=== PATIENT | male | born 1995 | race Two or more races ===

== ENCOUNTER 2016-09-19 17:30 | Emergency (ER) | payer MEDICAID ==
[2016-09-19 17:43] VITALS: TEMP 98; BMI 37.0
[2016-09-19] MEDS ORDERED: ONDANSETRON HCL 4 MG/2 ML VIAL IV ONE (17:56)
[2016-09-19] MEDS ORDERED: HYDROmorphone 1 MG INJECTION IV ONE (17:56)
[2016-09-19] MEDS ORDERED: HYDROmorphone 1 MG INJECTION ONE (17:58)
[2016-09-19] MEDS ORDERED: ONDANSETRON HCL 4 MG/2 ML VIAL ONE (17:58)
[2016-09-19] MEDS ORDERED: HYDROmorphone 1 MG INJECTION IV SCH (18:00)
--- NOTE | 2016-09-19 18:02 | EDPRACDOC ---
<Dayanna Fierro Matilde - Last Filed: 09/19/16 19:03> - General Information Mode of Arrival: Car - History of Present Illness Onset: [employer] HPI: PT STATES PLAYING FOOTBALL TWISTED LEFT NKLE AFTER BEING TCKLED FROM BEHIND. PT C/O LEFT ANKLE PAIN AND SWELLING AND CANT BEAR WEIGHT. THERE APPERS TO BE OBVIOUS DEFORMITY OF THE ANKLE. PT CAN WIGGLE TOES AND ANTERIOR PEDAL PULSE IS PRESENT. Ankle Problem Location: Reports: Left, Medial, Lateral Mechanism: Reports: Inversion Circumstances: Reports: None Tetanus Up To Date?: No Able to Bear Weight: No Pain Severity: Reports: Moderate Associated Signs & Symptoms: Reports: Swelling, Other (OBVIOUS DEFORMITY) <Mercy Mcnally - Last Filed: 09/20/16 20:53> - General Information Chief Complaint: Ankle Pain Stated Complaint: L ANKLE PAIN Time Seen by Provider: 09/19/16 17:56 Home Medications: Home Medications Oxycodone Immediate Release [Oxycodone Immediate Release (OxyIR)] 5 mg PO Q4H PRN #20 tab 09/19/16 Allergies/Adverse Reactions: Allergies Allergy/AdvReac Type Severity Reaction Status Date / Time No Known Allergies Allergy Verified 09/19/16 17:48 ED Past Medical History - History Reviewed Yes Nurses notes reviewed and agree except as marked Travel Outside of [place] in the Last 3 Months?: No - Patient Medical History Respiratory History: Reports: Asthma Psychological History: Denies: Depression - Social Medical History Smoking Status: Heavy tobacco smoker (5 or more cigarettes/day or daily pipe/ cigar) Social History: Reports: Marijuana Use (OCCASIONAL USE) ETOH: None Lives With: Other Lives In: Home <Mercy Mcnally - Last Filed: 09/20/16 20:53> EDM Review of Systems - Review of Systems ROS Negative Except as Marked: Yes All systems reviewed and were negative except as marked Constitutional: No Symptoms Reported. negative: Fever, Chills, Weakness, Fatigue, Loss of Appetite Eyes: No Symptoms Reported. negative: Redness, Blurred Vision, Double Vision, Discharge, Pain, Light Sensitive, Photophobia Ears: No Symptoms Reported. negative: Pain, Hearing Loss, Drainage, Ear Pulling Throat: No Symptoms Reported. negative: Pain, Swelling Nose: No Symptoms Reported. negative: Congestion, Bleeding, Discharge, Injection, Swelling, Deformity, Ecchymosis, Tender, Abrasion, Laceration Mouth: No Symptoms Reported. negative: Pain, Drooling Respiratory: No Symptoms Reported. negative: Cough, Brassy Cough, Barky Cough, Shortness of Breath, Wheezing, Hemoptysis Cardiovascular: No Symptoms Reported. negative: Chest Pain, Palpitations, Syncope, Edema, Orthopnea, PND, Skin Mottling, Cyanosis Gastrointestinal: No Symptoms Reported. negative: Pain, Constipation, Nausea, Vomiting, Diarrhea, Melena, Formula Intolerance Genitourinary: No Symptoms Reported. negative: Dysuria, Hematuria, Frequency, Discharge, Bleeding, Testicular Pain, Neurological: No Symptoms Reported. negative: Headache, Dizziness, Seizure, Numbness, Weakness, Speech Difficulty, Gait Difficulty Musculoskeletal: Ankle (LEFT). negative: Arm, Back, Chestwall, Elbow, Forearm, Femur, Foot, Hand, Hip, Knee, Leg, Neck, Pelvis, Ribs, Shoulder, Wrist Integumentary: No Symptoms Reported. negative: Itching, Rash, Bruising, Wound Allergic/Immunologic: No Symptoms Reported. negative: Hives, Itching Hematologic: No Symptoms Reported. negative: Lymphadenopathy, Easy Bruising, Easy Bleeding Endocrine: No Symptoms Reported. negative: Weight Gain, Weight Loss Psychiatric: No Symptoms Reported. negative: Anxiety, Depression, Hallucinations, Insomnia, Suicidal <Mercy Mcnally - Last Filed: 09/20/16 20:53> - Physical Exam Last recorded Vital Signs: Last Vital Signs Temp 98.0 F 09/19/16 17:41 Pulse 101 09/19/16 17:41 Resp 18 09/19/16 17:41 BP 129/78 09/19/16 17:41 Pulse Ox 98 09/19/16 17:41 Oxygen Pulse Oxygen Saturation 98 O2 Device Room Air Oxygen Flow Rate Fraction of Inspired Oxygen ( FIO2) <Dayanna Fierro - Last Filed: 09/19/16 19:03> - Physical Exam Constitutional: Alert (Awake), No apparent distress Oriented to: Time, Person, Place Last recorded Vital Signs: Last Vital Signs Temp 98.0 F 09/19/16 17:41 Pulse 101 09/19/16 17:41 Resp 18 09/19/16 17:41 BP 129/78 09/19/16 17:41 Pulse Ox 98 09/19/16 17:41 Oxygen Pulse Oxygen Saturation 98 O2 Device Room Air Oxygen Flow Rate Fraction of Inspired Oxygen ( FIO2) - HEENT Head: Normal ( normocephalic) Eye Exam: Normal (PERRL, EOMI, Sclera white) Oropharynx: Normal (Pharynx:Moist without exudate,Gums-no swelling) Tympanic Membrane: Normal ENT EAC: Normal TMJ: Normal Nose: No Symptoms Reported (septum midline) Neck: Normal (FROM, trachea at midline) - Respiratory/Cardiovascular Respiratory: Normal - CTA (BBS clear to auscultation without adventitious sounds ) Cardiovascular: Normal (RRR without murmur, gallop or rub) - GI Auscultation: Normal (NABS) Palpation: Normal (Soft,No rebound or guarding, non distended) Tenderness: Non tender Keane's Sign: Negative - Musculoskeletal Back: Normal (Non-Tender) Extremities: Normal (Normal tone, Pulses 2+ No cyanosis or edema, FROM) - Integumentary Skin: Normal, Warm, Dry Lymphatics: Normal (no adenopathy) - Neurologic Memory Impaired: Normal Motor Function: Normal (Normal tone, Pulses 2+ No cyanosis or edema, FROM) Cranial Nerve: Normal (CN II-X11 intact sensation, strength 5/5) Cerebellar: Normal Mood Description: Normal Perception: Normal <Mercy Mcnally - Last Filed: 09/20/16 20:53> ED Ankle Problem Phys Exam - Musculoskeletal Ankle: Swelling (LEFT MEDIL AND LATERAL SWELLING), Deformity, Limited ROM, Moderate Tenderness Achilles Tendon: Normal Knee: Normal Lower Leg: Normal Foot: Normal Distal Function/Circulation: Normal - Integumentary Skin: Normal Lymphatics: Normal <Mercy Mcnally - Last Filed: 09/20/16 20:53> ED Procedures - Splinting ANKLE Location: LT Splint: POSTERIOR SHORT LEG AND STIRRUP Pre-Proc Neuro Vasc Exam: normal Post-Proc Neuro Vasc Exam: normal Other Devices: Crutches - Additional Procedures Progress Note: HEMATOMA BLOCK OF LEFT ANKLE: AREA CLEANED AND DRAPED IN STERILE FASHION WITH BETADINE, BUPIVACAINE 0.5%(5CC) AND LIDO 1% WITH EPI (5CC) USED TO INJECTED THE TRAUMATIC HEMATOMA, BLEEDING CONTROLLED WITH PRESSURE, PT TOLERATED WELL AND HAD MILD TO MODERATE RELIEF SEVERAL MINUTES AFTER BLOCK PLACED. <Mercy Mcnally - Last Filed: 09/20/16 20:53> - Differential Diagnosis Contusion, Fibula Fracture, Fracture, Sprain, Tibia Fracture - Diagnostic Imaging ANKLE/TIB/FIB Image interpreted by: Radiologist Exam Information Accession Number: [id number] Modality: CR Body Part: KIMBERLY Description: DG ANKLE COMPLETE 3+V*L* Performed Date: 09/19/2016 18:08:23 Patient History: [employer]Y [employer]ORTS Comments: PT CC: PT WAS PLAYING FOOTBALL TODAY, WHEN HE WAS TACKLED ENDING IN A TWIST INJ TO THE LT ANKLE, PAIN/SWELLING, LIMITED RANGE OF MOTION. Final Report CLINICAL DATA: Playing football today and injured ankle and left leg. EXAM: LEFT ANKLE COMPLETE - 3+ VIEW; LEFT TIBIA AND FIBULA - 2 VIEW COMPARISON: None. FINDINGS: Left tibia/ fibula: Oblique coursing nondisplaced distal fibular fractures noted. The knee joint is maintained. No tibia fracture. Left ankle: Nondisplaced oblique coursing distal fibular fracture at and above the level of the ankle mortise. The medial malleolus is intact. Possible subtle posterior malleolar fracture. The ankle mortise is maintained. The mid and hindfoot bony structures are intact. IMPRESSION: Nondisplaced distal fibular fracture. Possible subtle nondisplaced posterior malleolar fracture of the tibia. <Mercy Mcnally - Last Filed: 09/20/16 20:53> <Dayanna Fierro - Last Filed: 09/19/16 19:03> Decision Time to Discharge: 18:56 - Departure Disposition: Home Education/Counseling Given To: Patient Education/Counseling Given Regarding: Diagnosis, Treatment, Prognosis, Follow Up <Mercy Mcnally - Last Filed: 09/20/16 20:53> - Departure Condition: Stable Final Diagnosis: Ankle Fracture Bimalleolar fracture of left ankle Qualifiers: Encounter type: initial encounter Fracture type: closed Qualified Code(s): S82.842A - Displaced bimalleolar fracture of left lower leg, initial encounter for closed fracture Instructions: Ankle Fracture (ED), RICE: Routine Care for Injuries Referrals: None,No Provider [Primary Care Provider] - One Week Patrice Powell DO [Staff Physician] - One Week Prescriptions: Oxycodone Immediate Release [Oxycodone Immediate Release (OxyIR)] 5 mg PO Q4H PRN #20 tab PRN Reason: Pain Additional Instructions: REST ICE COMPRESS AND ELEVATE YOUR LEFT FOOT TO HELP WITH SWELLING. PLEASE FOLLOW UP WITH ORTHOPEDIST WE DISCUSSED.
[2016-09-19] MEDS ORDERED: BUPIVACAINE 0.5% 30 ML VIAL INF ONE (18:10)
[2016-09-19] MEDS ORDERED: BUPIVACAINE 0.5% 30 ML VIAL ONE (18:12)
--- NOTE | 2016-09-19 18:45 | DIRPT ---
CLINICAL DATA: Playing football today and injured ankle and left leg. EXAM: LEFT ANKLE COMPLETE - 3+ VIEW; LEFT TIBIA AND FIBULA - 2 VIEW COMPARISON: None. FINDINGS: Left tibia/ fibula: Oblique coursing nondisplaced distal fibular fractures noted. The knee joint is maintained. No tibia fracture. Left ankle: Nondisplaced oblique coursing distal fibular fracture at and above the level of the ankle mortise. The medial malleolus is intact. Possible subtle posterior malleolar fracture. The ankle mortise is maintained. The mid and hindfoot bony structures are intact. IMPRESSION: Nondisplaced distal fibular fracture. Possible subtle nondisplaced posterior malleolar fracture of the tibia. Electronically Signed By: Augusto Bahena M.D. On: 09/19/2016 18:43
[2016-09-19 19:48] VITALS: BP 126/74; PULSE 100
== END 2016-09-19 19:42 | disposition home or self-care (01) ==
LOC: ED 17:30
DX: S82.842A Displaced bimalleolar fracture of left lower leg, initial encounter for closed fracture (principal); X58.XXXA Exposure to other specified factors, initial encounter; Y93.61 Activity, american tackle football
CPT/HCPCS: 29515; 73590; 73610; 96372; 96374; 96375; 96376; 99283; J1170; J2405; J3490

== ENCOUNTER 2016-09-20 20:25 | Emergency (ER) | payer MEDICAID ==
[2016-09-20 20:26] VITALS: BMI 37.0
[2016-09-20 21:12] VITALS: BP 111/75; PULSE 84; TEMP 98.8
[2016-09-20] MEDS ORDERED: OXYCODONE HCL 5 MG TABLET PO ONE (21:36)
--- NOTE | 2016-09-20 21:38 | EDPRACDOC ---
- General Information Chief Complaint: Ankle Pain Stated Complaint: LT ANKLE FX HERE FOR CHANGE IN PAIN MED Time Seen by Provider: 09/20/16 21:32 Information Source: Patient Mode of Arrival: Car Home Medications: Home Medications Oxycodone Immediate Release [Oxycodone Immediate Release (OxyIR)] 5 mg PO Q4H PRN #20 tab 09/19/16 Oxycodone HCl/Acetaminophen [Percocet 5-325 mg Tablet] 1 tab PO Q4-6H PRN #10 tab 09/20/16 Allergies/Adverse Reactions: Allergies Allergy/AdvReac Type Severity Reaction Status Date / Time No Known Allergies Allergy Verified 09/20/16 21:12 - History of Present Illness Onset: yesterday HPI: PT SEEN HERE YESTERDAY FOR BIMALLEOLAR FRACTURE ON LEFT STATES HE WAS GIVEN OXYCODONE 5MG EVERY 4 HRS AND STATES THE OLEARY MEDICATION ISNT REALLY HELPING. Ankle Problem Location: Reports: Left, Lateral Mechanism: Reports: Other (PLAYING FOOTBALL TACKLED FROM BEHIND) Circumstances: Reports: Sporting Able to Bear Weight: No Pain Severity: Reports: Moderate Associated Signs & Symptoms: Reports: Other (IN SPLINT) ED Past Medical History - History Reviewed Yes Nurses notes reviewed and agree except as marked Travel Outside of [place] in the Last 3 Months?: No - Patient Medical History Respiratory History: Reports: Asthma Psychological History: Denies: Depression - Social Medical History Smoking Status: Heavy tobacco smoker (5 or more cigarettes/day or daily pipe/ cigar) Social History: Reports: Marijuana Use (OCCASIONAL USE) ETOH: None Substance Abuse: None Lives With: Significant Other Lives In: Home EDM Review of Systems - Review of Systems ROS Negative Except as Marked: Yes All systems reviewed and were negative except as marked Constitutional: No Symptoms Reported. negative: Fever, Chills, Weakness, Fatigue, Loss of Appetite Eyes: No Symptoms Reported. negative: Redness, Blurred Vision, Double Vision, Discharge, Pain, Light Sensitive, Photophobia Ears: No Symptoms Reported. negative: Pain, Hearing Loss, Drainage, Ear Pulling Throat: No Symptoms Reported. negative: Pain, Swelling Nose: No Symptoms Reported. negative: Congestion, Bleeding, Discharge, Injection, Swelling, Deformity, Ecchymosis, Tender, Abrasion, Laceration Mouth: No Symptoms Reported. negative: Pain, Drooling Respiratory: No Symptoms Reported. negative: Cough, Brassy Cough, Barky Cough, Shortness of Breath, Wheezing, Hemoptysis Cardiovascular: No Symptoms Reported. negative: Chest Pain, Palpitations, Syncope, Edema, Orthopnea, PND, Skin Mottling, Cyanosis Gastrointestinal: No Symptoms Reported. negative: Pain, Constipation, Nausea, Vomiting, Diarrhea, Melena, Formula Intolerance Genitourinary: No Symptoms Reported. negative: Dysuria, Hematuria, Frequency, Discharge, Bleeding, Testicular Pain, Neurological: No Symptoms Reported. negative: Headache, Dizziness, Seizure, Numbness, Weakness, Speech Difficulty, Gait Difficulty Musculoskeletal: Ankle (LEFT). negative: Arm, Back, Chestwall, Elbow, Forearm, Femur, Foot, Hand, Hip, Knee, Leg, Neck, Pelvis, Ribs, Shoulder, Wrist Integumentary: No Symptoms Reported. negative: Itching, Rash, Bruising, Wound Allergic/Immunologic: No Symptoms Reported. negative: Hives, Itching Hematologic: No Symptoms Reported. negative: Lymphadenopathy, Easy Bruising, Easy Bleeding Endocrine: No Symptoms Reported. negative: Weight Gain, Weight Loss Psychiatric: No Symptoms Reported. negative: Anxiety, Depression, Hallucinations, Insomnia, Suicidal - Physical Exam Constitutional: Alert (Awake), No apparent distress Oriented to: Time, Person, Place Last recorded Vital Signs: Last Vital Signs Temp 98.8 F 09/20/16 21:09 Pulse 84 09/20/16 21:09 Resp 18 09/20/16 21:09 BP 111/75 09/20/16 21:09 Pulse Ox 95 09/20/16 21:09 Oxygen Pulse Oxygen Saturation 95 O2 Device Room Air Oxygen Flow Rate Fraction of Inspired Oxygen ( FIO2) - HEENT Head: Normal ( normocephalic) Eye Exam: Normal (PERRL, EOMI, Sclera white) Oropharynx: Normal (Pharynx:Moist without exudate,Gums-no swelling) Tympanic Membrane: Normal ENT EAC: Normal TMJ: Normal Nose: No Symptoms Reported (septum midline) Neck: Normal (FROM, trachea at midline) - Respiratory/Cardiovascular Respiratory: Normal - CTA (BBS clear to auscultation without adventitious sounds ) Cardiovascular: Normal (RRR without murmur, gallop or rub) - GI Auscultation: Normal (NABS) Palpation: Normal (Soft,No rebound or guarding, non distended) Tenderness: Non tender Keane's Sign: Negative - Musculoskeletal Back: Normal (Non-Tender) Extremities: Normal (Normal tone, Pulses 2+ No cyanosis or edema, FROM) - Integumentary Skin: Normal, Warm, Dry Lymphatics: Normal (no adenopathy) - Neurologic Memory Impaired: Normal Motor Function: Normal (Normal tone, Pulses 2+ No cyanosis or edema, FROM) Cranial Nerve: Normal (CN II-X11 intact sensation, strength 5/5) Cerebellar: Normal Mood Description: Normal Perception: Normal ED Ankle Problem Phys Exam - Musculoskeletal Ankle: Other (IN SPLINT) Achilles Tendon: Normal Knee: Normal Lower Leg: Normal Distal Function/Circulation: Normal, Capillary Refill (<2 SEC) - Integumentary Skin: Normal Lymphatics: Normal - Differential Diagnosis Other (ANKLE FRACTURE PAIN CONTROL/MEDICATION REFILL) Decision Time to Discharge: 21:39 - Departure Disposition: Home Condition: Stable Final Diagnosis: Ankle Fracture Instructions: RICE: Routine Care for Injuries, Ankle Fracture (ED), Narcotic Pain Management (ED) Education/Counseling Given To: Patient Education/Counseling Given Regarding: Diagnosis, Treatment, Prognosis, Follow Up Referrals: None,No Provider [Primary Care Provider] - One Week Patrice Powell DO [Staff Physician] - One Week Prescriptions: Oxycodone HCl/Acetaminophen [Percocet 5-325 mg Tablet] 1 tab PO Q4-6H PRN #10 tab PRN Reason: Pain Additional Instructions: TAKE 1 OXYCODONE AND 1 PERCOCET FOR INCREASED PAIN RELIEF, ALSO TAKE MOTRIN 800MG IN BETWEEN YOUR PAIN MEDICATION FOR INCREASED PAIN RELIEF.
== END 2016-09-20 21:53 | disposition home or self-care (01) ==
LOC: EDMC 20:25
DX: S82.842D Displaced bimalleolar fracture of left lower leg, subsequent encounter for closed fracture with routine healing (principal); X58.XXXD Exposure to other specified factors, subsequent encounter
CPT/HCPCS: 99282; J3490

== ENCOUNTER 2016-09-25 18:55 | Emergency (ER) | payer SELFPAY ==
[2016-09-25 18:56] VITALS: BMI 37.0
--- NOTE | 2016-09-25 19:32 | EDPRACDOC ---
- General Information Stated Complaint: MED REFILL Time Seen by Provider: 09/25/16 19:29 Information Source: Patient Mode Of Arrival: Car Home Medications: Home Medications Oxycodone Immediate Release [Oxycodone Immediate Release (OxyIR)] 5 mg PO Q4H PRN #20 tab 09/19/16 Oxycodone HCl/Acetaminophen [Percocet 5-325 mg Tablet] 1 tab PO Q4-6H PRN #10 tab 09/20/16 Meloxicam 15 mg PO DAILY #20 tab 09/25/16 Oxycodone HCl/Acetaminophen [Percocet 5-325 mg Tablet] 1 - 2 tab PO Q4-6H PRN # 15 tab 09/25/16 Allergies/Adverse Reactions: Allergies Allergy/AdvReac Type Severity Reaction Status Date / Time No Known Allergies Allergy Verified 09/20/16 21:12 - History of Present Illness HPI: PT HERE FOR MEDICATION REFILL, WAS SEEN HERE [facility]PROX 1 WEEK AGO HAD LEFT ANKLE FRACTURE. PT WAS REFERRED TO ORTHO. HAS BEEN IN ED 2 TIMES SINCE INITIAL VISIT FOR PAIN MEDICATION. Context: Reports: Ran out of Medication Medication for: Reports: Pain Pain: Reports: Moderate ED Past Medical History - History Reviewed Yes Nurses notes reviewed and agree except as marked Travel Outside of [place] in the Last 3 Months?: No - Patient Medical History Respiratory History: Reports: Asthma Psychological History: Denies: Depression - Social Medical History Smoking Status: Heavy tobacco smoker (5 or more cigarettes/day or daily pipe/ cigar) Social History: Reports: Marijuana Use (OCCASIONAL USE) ETOH: None Lives With: Other Lives In: Home EDM Review of Systems - Review of Systems ROS Negative Except as Marked: Yes All systems reviewed and were negative except as marked Constitutional: No Symptoms Reported. negative: Fever, Chills, Weakness, Fatigue, Loss of Appetite Eyes: No Symptoms Reported. negative: Redness, Blurred Vision, Double Vision, Discharge, Pain, Light Sensitive, Photophobia Ears: No Symptoms Reported. negative: Pain, Hearing Loss, Drainage, Ear Pulling Throat: No Symptoms Reported. negative: Pain, Swelling Nose: No Symptoms Reported. negative: Congestion, Bleeding, Discharge, Injection, Swelling, Deformity, Ecchymosis, Tender, Abrasion, Laceration Mouth: No Symptoms Reported. negative: Pain, Drooling Respiratory: No Symptoms Reported. negative: Cough, Brassy Cough, Barky Cough, Shortness of Breath, Wheezing, Hemoptysis Cardiovascular: No Symptoms Reported. negative: Chest Pain, Palpitations, Syncope, Edema, Orthopnea, PND, Skin Mottling, Cyanosis Gastrointestinal: No Symptoms Reported. negative: Pain, Constipation, Nausea, Vomiting, Diarrhea, Melena, Formula Intolerance Genitourinary: No Symptoms Reported. negative: Dysuria, Hematuria, Frequency, Discharge, Bleeding, Testicular Pain, Neurological: No Symptoms Reported. negative: Headache, Dizziness, Seizure, Numbness, Weakness, Speech Difficulty, Gait Difficulty Musculoskeletal: Ankle (LT). negative: Arm, Back, Chestwall, Elbow, Forearm, Femur, Foot, Hand, Hip, Knee, Leg, Neck, Pelvis, Ribs, Shoulder, Wrist Integumentary: No Symptoms Reported. negative: Itching, Rash, Bruising, Wound Allergic/Immunologic: No Symptoms Reported. negative: Hives, Itching Hematologic: No Symptoms Reported. negative: Lymphadenopathy, Easy Bruising, Easy Bleeding Endocrine: No Symptoms Reported. negative: Weight Gain, Weight Loss Psychiatric: No Symptoms Reported. negative: Anxiety, Depression, Hallucinations, Insomnia, Suicidal - Physical Exam Constitutional: No apparent distress, Alert (Awake) Oriented to: Time, Person, Place Last recorded Vital Signs: Oxygen Pulse Oxygen Saturation O2 Device Oxygen Flow Rate Fraction of Inspired Oxygen ( FIO2) - HEENT Head: Normal ( normocephalic) Eye Exam: Normal (PERRL, EOMI, Sclera white) Oropharynx: Normal (Pharynx:Moist without exudate,Gums-no swelling) Tympanic Membrane: Normal ENT EAC: Normal TMJ: Normal Nose: No Symptoms Reported (septum midline) Neck: Normal (FROM, trachea at midline) - Respiratory/Cardiovascular Respiratory: Normal - CTA (BBS clear to auscultation without adventitious sounds ) Cardiovascular: Normal (RRR without murmur, gallop or rub) - GI Auscultation: Normal (NABS) Palpation: Normal (Soft,No rebound or guarding, non distended) Tenderness: Non tender Keane's Sign: Negative - Bladder: Normal - Musculoskeletal Back: Normal (Non-Tender) Extremities: Normal (Normal tone, Pulses 2+ No cyanosis or edema, FROM) Musculoskeletal Comment: MINIMAL LEFT ANKLE SWELLING. - Integumentary Skin: Normal, Warm, Dry Lymphatics: Normal (no adenopathy) - Neurologic Memory Impaired: Normal Motor Function: Normal (Normal tone, Pulses 2+ No cyanosis or edema, FROM) Cranial Nerve: Normal (CN II-X11 intact sensation, strength 5/5) Cerebellar: Normal Mood Description: Normal Perception: Normal - Differential Diagnosis Medication Refill Decision Time to Discharge: 19:32 - Departure Disposition: Home Condition: Stable Final Diagnosis: Medication refill Instructions: Medicine Refill (ED) Education/Counseling Given To: Patient Education/Counseling Given Regarding: Diagnosis, Treatment, Prognosis, Follow Up Referrals: Senait Smith MD [Primary Care Provider] - One Week Prescriptions: New Meloxicam 15 mg PO DAILY #20 tab Oxycodone HCl/Acetaminophen [Percocet 5-325 mg Tablet] 1 - 2 tab PO Q4-6H PRN #15 tab PRN Reason: Pain No Action Oxycodone Immediate Release [Oxycodone Immediate Release (OxyIR)] 5 mg PO Q4H PRN #20 tab PRN Reason: Pain Oxycodone HCl/Acetaminophen [Percocet 5-325 mg Tablet] 1 tab PO Q4-6H PRN # 10 tab PRN Reason: Pain Additional Instructions: PLEASE FOLLOW UP WITH ORTHOPEDIST FOR FURTHER EVALUATION. THE EMERGENCY DEPARTMENT WILL NOT REFILL YOUR PAIN MEDICATION AGAIN FOR THIS SAME COMPLAINT.
== END 2016-09-25 19:49 | disposition home or self-care (01) ==
LOC: ED 18:55
DX: Z76.0 Encounter for issue of repeat prescription (principal)
CPT/HCPCS: 99281